=== PATIENT | male | born 1980 | race Caucasian/White ===

== ENCOUNTER → 2017-12-15 14:40 | Outpatient (CLI) | payer OTHER, SELFPAY ==
[2017-12-15 14:45] LABS: Bacteria 0 SEEN /hpf (None Seen); Mucous, Urine 0 SEEN /hpf (<or=2+); Red Blood Cells-Urine 0 SEEN /hpf (0-5)
[2017-12-15 17:14] LABS: Color, Urine Yellow (Yellow); Glucose, Dipstick Normal (Normal); Ketone-Dipstick Negative (Negative); Leukocyte Esterase-Dipstick 25 /ul (Negative); Nitrite-Dipstick Negative (Negative); Occult Blood-Urine Negative /ul (Negative); Protein-Dipstick Negative (Negative); Specific Gravity, Urine 1.005 (1.002-1.030); Urine Bilirubin Dipstick Negative (Negative); Urine Clarity Sl. Cloudy (Clear); Urine Urobilinogen Normal (Normal)
[2017-12-15 17:20] LABS: Anion Gap 7 (5-15); BUN 12 mg/dL (7-18); BUN/Creat Ratio 8.8 RATIO (10-20); Calcium,Total 8.7 mg/dL (8.5-10.1); Chloride 103 mmol/L (98-107); Creatinine, Serum 1.37 mg/dL (0.70-1.30); EST Glomerular Filtration Rate 62 mL/min (>60); Est Glom Filt Rate - Afr Amer 75 mL/min (>60); Glucose 103 mg/dL (74-106); Potassium 3.8 mmol/L (3.5-5.1); Sodium Level 140 mmol/L (136-145)
[2017-12-15 17:21] LABS: Absolute Lymphocyte Count 2.14 X10^3/ul (0.83-4.51); Absolute Neutrophil Count 3.5 X10^3/uL (2.0-7.7); Basophil# 0.02 X10^3/uL; Basophil% 0.3 % (0-1); Eosinophils% 3.2 % (0-5); Hematocrit 43.2 % (40-54); Hemoglobin 15.1 g/dl (13.0-16.5); Lymphocyte # 2.14 X10^3/ul (4.0); Lymphocyte % 33.9 % (19-41); Mean Corpuscular Hgb 30.6 pg (27.0-32.0); Mean Corpuscular Volume 87.4 fL (80-94); Mean Platelet Vol. 10.9 fl (6.2-12.0); Monocyte# 0.43 X10^3/uL; Monocyte% 6.8 % (0-10); Neutrophil # 3.51 X10^3/uL (2.7-7.7); Neutrophil % 55.6 % (47-70); Platelet Count 269 K/mm3 (150-450); RBC Distribution Width CV 13.3 % (11.6-14.6); RBC Distribution Width SD 42.4 fl (35.1-43.9); Red Blood Count 4.94 M/mm3 (4.6-6.2); White Blood Count 6.3 K/mm3 (4.4-11.0)
[2017-12-15 17:22] LABS: Squamous Epithelial Cells - UA 0-5 SEEN /hpf (0-5); White Blood Cells 0-5 SEEN /hpf (0-5)
[2017-12-15 17:28] LABS: POSITIVE COUNT NO; POSITIVE DIFFERENTIAL NO; POSITIVE MORPHOLOGY NO
== END ==
PROVIDERS: Family Provider Family Medicine; PCP Family Medicine; Visit Provider Family Medicine
DX: Z52.4 Kidney donor (principal)
CPT/HCPCS: 36415; 80048; 81001; 85025

== ENCOUNTER 2019-03-08 09:21 | Emergency (ER) | payer MEDICAID, SELFPAY ==
[2019-03-08 09:22] VITALS: BP 158/91; PULSE 74; RESP 18; TEMP 36.7; O2SAT 99; BMI 30.9
--- NOTE | 2019-03-08 09:33 | EKG12_ITS ---
Test Reason : CP Blood Pressure : / mmHG Vent. Rate : 073 BPM Atrial Rate : 073 BPM P-R Int : 150 ms QRS Dur : 112 ms QT Int : 390 ms P-R-T Axes : 044 -87 050 degrees QTc Int : 429 ms Normal sinus rhythm Left anterior fascicular block Abnormal ECG Confirmed by ALONZO MCCARTHY ([id number]), editorial assistant WESLEY SAM ([id number] on 03/14/2019 3:40:22 PM Referred By: LAURA Confirmed By:ALONZO MCCARTHY
--- NOTE | 2019-03-08 09:35 | RAD_ITS ---
STUDY: X-RAY CHEST REASON FOR EXAM: Male, 38 years old. Chest pain TECHNIQUE: Single AP portable view of the chest. COMPARISON: None. FINDINGS: The lungs are clear and expanded. There is no demonstrated pleural abnormality. Normal size heart. Normal mediastinum and inocencia. Normal visualized pulmonary arteries. Normal visualized aortic arch and descending thoracic aorta. Normal visualized thoracic spine. Normal visualized ribs, clavicles, and shoulders. There is no demonstrated abnormality of the visualized soft tissue structures of the upper abdomen. RAD/Chest 1 View (Portable) IMPRESSION: Normal x-ray examination of the chest. Electronically Signed: Abdirizak Bowling DO at 9:56 EDT Tel , Service support ,
--- NOTE | 2019-03-08 09:35 | ED.VISSUMM ---
- ER Visit Summary Date of Service: 03/08/19 Chief Complaint: Chest pain, shortness of breath, and dizziness History of Present Illness: The patient is a 38 M who presents with chest pain, shortness of breath, and dizziness that began today. Patient states the dizziness began rather suddenly with the chest pain shortness of breath has gradually gotten worse since this morning. Patient states the dizziness feels like his head is spinning. Patient also admits to some decreased hearing. Patient states his chest pain is a dull ache over the left parasternal chest area. Patient admits to some shortness of breath and diaphoresis. Patient also admits to some palpitations. Patient also admits to a cough. Patient denies any nausea or vomiting. Patient denies any fevers or chills. Patient is a smoker. Patient has no other cardiac or PE risk factors. Physical Examination: Vital signs are stable. Patient is afebrile. Patient is in no acute distress. Oral mucosa is pink and moist. Neck is supple. Trachea is midline. There is no JVD noted. Heart was regular rate and rhythm. Lungs are clear and equal bilateral. Abdomen is soft. Bowel sounds are normal. There is no tenderness. There is no guarding noted. Skin is warm dry. Cranial nerves II through XII are intact. There are no focal motor or sensory deficits noted. The remaining physical exam is within normal limits. Test Results: EKG showed normal sinus rhythm with a rate of 73. There is a left anterior fascicular block. There is no other acute ST or T wave changes noted. CBC was normal. Basic metabolic profile shows slightly elevated creatinine 1.39. Troponin was normal at less than 0.015. Chest x-ray was obtained. There is no acute cardiopulmonary process. Emergency Department Course and Treatment: Patient was given aspirin here. Patient was given a dose of meclizine here. Patient felt better on reevaluation. Patient states his dizziness and chest pain has resolved. Patient has a HEART score of 3 and a PAMELA risk score of 1. Patient was advised that this is low risk for acute cardiac event. Patient was instructed to follow-up with his primary care physician in 5 to 7 days. Patient understood and was agreeable with the plan. All questions were answered. Disposition: Discharge home Impression: 1. Chest pain 2. Dizziness This note was generated with [employer] software. It may contain incorrect words, spelling, and punctuation that were not noted in review of the chart prior to signing ED Disposition - Plan for ED Patient: Disposition: Home or Assisted Living Diagnosis: Chest pain, Dizziness Instructions: ED Chest Pain [facility] Referrals: Ty Bowles MD [Primary Care Provider] - 5-7 Days
[2019-03-08 09:38] VITALS: O2SAT 98
[2019-03-08] MEDS: Aspirin 81 MG TAB.CHEW 324 MG PO (09:41)
[2019-03-08] MEDS: Meclizine HCl 25 MG Tablet PO (09:41)
[2019-03-08 10:26] VITALS: BP 135/86; PULSE 58; RESP 20; O2SAT 99
[2019-03-08 10:40] LABS: Absolute Lymphocyte Count 2.51 X10^3/ul (0.83-4.51); Absolute Neutrophil Count 4.3 X10^3/uL (2.0-7.7); Basophil# 0.04 X10^3/uL; Basophil% 0.5 % (0-1); Eosinophil# 0.14 X10^3/uL; Eosinophils% 1.8 % (0-5); Hematocrit 44.3 % (40-54); Lymphocyte # 2.51 X10^3/ul (4.0); Lymphocyte % 31.7 % (19-41); Mean Corpuscular Volume 86.9 fL (80-94); Mean Platelet Vol. 11.1 fl (6.2-12.0); Monocyte% 11.4 % (0-10); Neutrophil # 4.32 X10^3/uL (2.7-7.7); Neutrophil % 54.5 % (47-70); Platelet Count 280 K/mm3 (150-450); RBC Distribution Width CV 13.1 % (11.6-14.6); RBC Distribution Width SD 42.3 fl (35.1-43.9); White Blood Count 7.9 K/mm3 (4.4-11.0)
[2019-03-08 10:41] LABS: Hemoglobin 15.6 g/dl (13.0-16.5); Mean Corp Hgb Conc 35.2 g/gl (32-36); Mean Corpuscular Hgb 30.6 pg (27.0-32.0)
[2019-03-08 10:42] LABS: POSITIVE COUNT NO; POSITIVE DIFFERENTIAL NO; POSITIVE MORPHOLOGY NO
[2019-03-08 10:49] LABS: Anion Gap 4 (5-15); BUN 14 mg/dL (7-18); BUN/Creat Ratio 10.1 RATIO (10-20); Chloride 105 mmol/L (98-107); Creatinine, Serum 1.39 mg/dL (0.70-1.30); EST Glomerular Filtration Rate 61 mL/min (>60); Est Glom Filt Rate - Afr Amer 73 mL/min (>60); Estimated Creatinine Clearance 83.78 ml/min; Glucose 78 mg/dL (74-106); Potassium 4.1 mmol/L (3.5-5.1); Sodium Level 138 mmol/L (136-145)
[2019-03-08 11:08] VITALS: BP 140/86; PULSE 50; RESP 20
[2019-03-08 12:10] VITALS: BP 140/92; PULSE 51; RESP 14; O2SAT 99
[2019-03-08 12:17] VITALS: BP 128/84; PULSE 58; RESP 18; O2SAT 98
== END 2019-03-08 12:18 | disposition home or self-care (01) ==
PROVIDERS: Emergency Provider Emergency Medicine; Family Provider Family Medicine; PCP Family Medicine
DX: R07.9 Chest pain, unspecified (principal); R42 Dizziness and giddiness; R51 Headache; M54.2 Cervicalgia; R06.00 Dyspnea, unspecified; J34.89 Other specified disorders of nose and nasal sinuses; I44.4 Left anterior fascicular block; R05 Cough; F17.210 Nicotine dependence, cigarettes, uncomplicated
CPT/HCPCS: 71045; 80048; 84484; 85025; 93005; 99285; A4216

== ENCOUNTER 2019-04-16 18:03 | Emergency (ER) | payer MEDICAID, SELFPAY ==
[2019-04-16 18:05] VITALS: BP 166/92; PULSE 118; RESP 16; TEMP 36.1; O2SAT 99; BMI 29.9
--- NOTE | 2019-04-16 18:35 | RAD_ITS ---
HISTORY: Right hand pain XR Hand Min 3 Views TECHNIQUE: 3 views # of images incl. paperwork: 3 COMPARISON: None. FINDINGS: On the lateral view, question of an age indeterminate volar plate avulsion fracture of the base of middle phalanx. Remaining osseous structures are otherwise intact without acute fracture or dislocation. Joint spaces are well-preserved. Soft tissues appear unremarkable. No radiopaque foreign body. RAD/Hand Min 3 Views IMPRESSION: 1. Age indeterminate volar plate avulsion fracture base of middle phalanx of third finger versus soft tissue calcification. Correlation with point of tenderness to determine acuity is recommended. 2. Otherwise, remainder of this exam is unremarkable. at 1915 Reported and signed by: Dino St MD Electronically Signed: Dino St MD at 19:14 EDT Tel , Service support ,
--- NOTE | 2019-04-16 18:45 | ED.VISSUMM ---
- ER Visit Summary Date of Service: 04/16/19 Chief Complaint: Right hand injury around the ring and small metacarpals. History of Present Illness: The patient is a 38 M [id number]. No significant past medical history other than the previously donated one kidney. Patient states he was hammering a nail when he hit a board with his right hand. No other injuries. He is right-hand dominant. No prior history or surgery to that hand. Physical Examination: Vital signs stable afebrile. Young male no acute distress vital signs stable afebrile. HEENT exam unremarkable. Neck nontender. Lungs clear to auscultation. Heart regular rhythm no murmur. Chest wall nontender. Abdomen soft nontender. Remedies moving all 4. Neurovascular intact. His right hand on the dorsum of the knee contusion to the proximal phalanx of his right ring finger. The superficial laceration over the MTP joint knuckle of the right small finger. There is no gross bony deformity. He has full flexion-extension all digits of the right hand. Neurovascular intact with normal cap refill. He is able to make a fist. He is able to completely extend the hand. There is no signs of any tendon injury. No signs of infection. The superficial laceration did not need to be repaired. Test Results: Right hand x-ray 3 views shows no acute fracture or dislocation. Emergency Department Course and Treatment: Discharge to home. Treatment Plan: Ice and elevate the right hand. Keep the wound clean. Motrin for pain and Tylenol. Follow-up if not improving. Disposition: Discharge Impression: Right hand contusion and superficial laceration. This note was generated with [employer] dictation software. It may contain incorrect words, spelling, and punctuation that were not noted in review of the chart prior to signing ED Disposition - Plan for ED Patient: Referrals: Ty Bowles MD [Primary Care Provider] -
--- NOTE | 2019-04-16 18:47 | ED.DEP ---
ED Disposition - Plan for ED Patient: Disposition: Home or Assisted Living Instructions: CONTUSION, Upper Extremity Referrals: Ty Bowles MD [Primary Care Provider] - 1 Week if not improving Additional Instructions: Ice and elevate the right hand. Keep the wound clean. X-ray shows no signs of anything broken. Tylenol and/or Motrin for pain. Follow-up if not improving.
[2019-04-16 18:58] VITALS: BP 145/78; PULSE 82; RESP 16; O2SAT 98
== END 2019-04-16 19:01 | disposition home or self-care (01) ==
LOC: ED 18:51
PROVIDERS: Emergency Provider Emergency Medicine; Family Provider Family Medicine; PCP Family Medicine
DX: S60.221A Contusion of right hand, initial encounter (principal); S61.411A Laceration without foreign body of right hand, initial encounter; W22.8XXA Striking against or struck by other objects, initial encounter; Y93.9 Activity, unspecified; Y92.89 Other specified places as the place of occurrence of the external cause; Y99.8 Other external cause status; Z72.0 Tobacco use
CPT/HCPCS: 73130; 99282

== ENCOUNTER 2019-05-03 13:47 | Emergency (ER) | payer MEDICAID, SELFPAY ==
[2019-05-03 13:48] VITALS: BP 124/72; PULSE 91; RESP 16; TEMP 36.2; O2SAT 98; BMI 29.5
--- NOTE | 2019-05-03 13:55 | RAD_ITS ---
STUDY: X-RAY - LEFT HAND, ATTENTION INDEX FINGER REASON FOR EXAM: Male, 38 years old. Pain following injury. TECHNIQUE: view(s) of the finger were obtained. COMPARISON: None. FINDINGS: Normal metacarpal head. Normal metacarpophalangeal joint. Normal proximal phalanx. Normal middle phalanx. Normal distal phalanx. Normal proximal interphalangeal joint. Normal distal interphalangeal joint. Soft tissue swelling. RAD/Finger(s) Min 2 Views IMPRESSION: Soft tissue swelling. Electronically Signed: Toi Fraser, at 14:33 EDT , Service support ,
--- NOTE | 2019-05-03 14:28 | ED.DCSUM_ITS ---
- ER Visit Summary Date of Service: 05/03/19 Chief Complaint: [Injury to left index finger] History of Present Illness: The patient is a 38 M ['s notes to the emergency department with an injury to his left index finger that occurred about an hour and a half ago. Patient accidentally struck his left index finger with a hammer. Patient is right-hand dominant. Patient unsure of his last tetanus.] Physical Examination: [Left index finger-patient has a 5 mm laceration over the lateral aspect of the distal phalanx lateral to the nail. Small amount of bleeding noted from the lateral edge of the nail. He has a small subungual hematoma measuring about 8% of the area of the nail. Normal range of motion at the DIP and PIP joint. Neurovascular intact.] Test Results: [X-rays of the left index finger obtained showed a nondisplaced fracture of the distal tuft of the finger.] Emergency Department Course and Treatment: [Patient had the wound cleansed and dressing applied. Patient was placed in an aluminum splint. Nothing amenable for laceration repair as the skin just split slightly from the pressure but there is really nothing to suture at this time.] Treatment Plan: [Follow-up with primary care physician in 5 to 7 days. Patient given a prescription for Revere for pain. Patient will be treated with Keflex for 7 days.] Disposition: [Discharged home stable condition] Impression: [Left index finger still phalanx fracture] This note was generated with [employer] dictation software. It may contain incorrect words, spelling, and punctuation that were not noted in review of the chart prior to signing ED Disposition - Plan for ED Patient: Referrals: Ty Bowles MD [Primary Care Provider] -
--- NOTE | 2019-05-03 14:31 | ED.DEP ---
ED Disposition - Plan for ED Patient: Instructions: FRACTURE, Finger (Open) Prescriptions: Cephalexin [Keflex] 500 mg PO Q6 #28 cap Prescription Printed Referrals: Ty Bowles MD [Primary Care Provider] - 5-7 Days
[2019-05-03] MEDS: Cephalexin 250 MG Capsule 500 MG PO (14:43)
[2019-05-03] MEDS: Diphth,Pertuss(Acell),Tet Vac 0.5 ML Vial IM (14:43)
[2019-05-03 15:13] VITALS: BP 138/97; PULSE 71; RESP 16; O2SAT 100
== END 2019-05-03 15:15 | disposition home or self-care (01) ==
PROVIDERS: Emergency Provider Emergency Medicine; Family Provider Family Medicine; PCP Family Medicine
DX: S62.601A Fracture of unspecified phalanx of left index finger, initial encounter for closed fracture (principal); W22.8XXA Striking against or struck by other objects, initial encounter; Y93.9 Activity, unspecified; Y92.89 Other specified places as the place of occurrence of the external cause; Y99.9 Unspecified external cause status; Z72.0 Tobacco use
CPT/HCPCS: 73140; 90471; 90715; 99283

== ENCOUNTER 2019-11-28 15:20 | Emergency (ER) | payer MEDICAID, SELFPAY ==
[2019-11-28 15:21] VITALS: BP 157/97; PULSE 91; RESP 18; TEMP 36.6; O2SAT 99; BMI 30.8
[2019-11-28] MEDS: DiphenhydrAMINE 50 MG/ML Syringe IV (15:38)
[2019-11-28] MEDS: MethylPREDNISolone 125 MG/2 ML Vial IV (15:39)
[2019-11-28] MEDS: 0.9% Normal Saline 1,000 ML 999 ML IV (15:39)
[2019-11-28] MEDS: Famotidine 200 MG/20 ML MDV 20 MG in 0.9% Normal Saline (Pres. free 8 ML 300 MG IV (15:45)
[2019-11-28 16:20] VITALS: BP 140/77; PULSE 83; RESP 17; O2SAT 97
--- NOTE | 2019-11-28 17:06 | ED.VISSUMM ---
- ER Visit Summary Date of Service: 11/28/19 Chief Complaint: Allergic reaction History of Present Illness: The patient is a 39 M who sees Andrea Do. Reports approximate 25 minutes ago he ate MSG. Approximately 10 minutes ago he began feeling like he was having difficulty breathing. Denies any rash or other complaints. Reports has had similar symptoms previously nares required epinephrine. He does not have an EpiPen with him. Physical Examination: Vitals: Stable. Afebrile. General: Well-nourished and well-developed. Head: Normocephalic atraumatic. HEENT: No angioedema of the lips, tongue, oropharynx. Neck: Supple, no lymphadenopathy. No JVD. Nontender. Cardiovascular: Regular rate and rhythm. No murmurs. Respiratory: No respiratory distress. Clear to auscultation bilaterally. No stridor or wheezing. Abdominal: Soft, nontender, nondistended, normal bowel sounds. No guarding, rebound, or peritoneal signs. Back: Nontender. Extremities: Nontender, no edema. Skin: Normal color, no rash. Neurologic: Alert and oriented ?3. Cranial nerves II through XII are intact. Normal strength and sensation. Psych: Normal affect. Emergency Department Course and Treatment: Patient was given epinephrine IM. He was given Benadryl, Solu-Medrol, Pepcid IV. His symptoms have resolved. Treatment Plan: Patient be discharged with an EpiPen. Is also given prescriptions for prednisone, Zyrtec, Pepcid. Instructed to follow-up with his primary care physician 1 to 2 days if not improving. Return to the emergency department for any worsening symptoms. Disposition: To home in improved and stable condition. Impression: 1. Allergic reaction to MSG. This note was generated with [employer] dictation software. It may contain incorrect words, spelling, and punctuation that were not noted in review of the chart prior to signing ED Disposition - Plan for ED Patient: Disposition: Home or Assisted Living Instructions: ALLERGIC REACTION, Other (General) Prescriptions: Prednisone [Deltasone] 60 mg PO DAILY #15 tab Prescription Printed Epi Pen (for allergic rxn) 0.3 mg IM X1 #2 syringe Prescription Printed Famotidine [Pepcid] 20 mg PO BID #28 tab Prescription Printed Cetirizine HCl [Zyrtec] 10 mg PO DAILY #14 cap Prescription Printed Referrals: Lis Do PA [Primary Care Provider] - 1-2 Days if not improving
[2019-11-28 17:40] VITALS: BP 126/73; PULSE 91; RESP 18; O2SAT 97
== END 2019-11-28 17:41 | disposition home or self-care (01) ==
LOC: ED 15:44
PROVIDERS: Emergency Provider Emergency Medicine; PCP Physician Assistant
DX: T78.40XA Allergy, unspecified, initial encounter (principal); F17.210 Nicotine dependence, cigarettes, uncomplicated
CPT/HCPCS: 96365; 96375; 99283; J7030; A4216; J3490

== ENCOUNTER 2022-11-30 07:27 | Emergency (ER) | payer MEDICAID, SELFPAY ==
[2022-11-30 07:27] VITALS: BP 153/90; PULSE 101; RESP 18; TEMP 36.2; O2SAT 100; BMI 30.8
--- NOTE | 2022-11-30 07:37 | CT_ITS ---
STUDY: CT ABDOMEN AND PELVIS WITH CONTRAST REASON FOR EXAM: Male, 42 years old. HX: RT NEPHRECTOMY D/T DONATION RADIATION DOSAGE (If Supplied By Facility): CTDIvol = ( 16.25 ) mGy, DLP = ( 1277.83 ) mGycm TECHNIQUE: Transaxial images were obtained from the dome of the diaphragm to the symphysis pubis with oral contrast. ml of 100mL Isovue-370 contrast was administered. Sagittal and coronal images were reconstructed. Individualized dose optimization techniques were used for this CT. COMPARISON: None. FINDINGS: The visualized lung bases are unremarkable. The visualized portions of the heart are within normal limits. There is diffuse mesenteric edema and retroperitoneal and central abdominal subcentimeter lymphadenopathy, consistent with chronic mesenteric inflammation. There is moderate edema in the wall of the middle one third ileum in the right lower quadrant with subtle surrounding inflammatory stranding. The remaining small bowel loops are normal. Small cysts are present in the liver which is otherwise normal. Normal gallbladder and extrahepatic biliary system. Normal spleen. Normal pancreas. Normal bilateral adrenal glands. Prior right nephrectomy. No masses or abnormal soft tissue density is seen in the surgical bed. Retrocaval surgical clips are present. Normal left kidney. Normal visualized stomach. Normal small intestine. Normal colon. The appendix is visualized and appears normal. Normal abdominal aorta. Normal inferior vena cava. Normal retroperitoneum. Normal urinary bladder. Normal abdominal wall. Normal osseous structures. CT/Abdomen/Pelvis WITH Contrast IMPRESSION: Nonspecified ileitis, most likely inflammatory in nature. 1. There is diffuse mesenteric edema and retroperitoneal and central abdominal subcentimeter lymphadenopathy, consistent with chronic mesenteric inflammation. There is moderate edema in the wall of the middle one third ileum in the right lower quadrant with subtle surrounding inflammatory stranding. The remaining small bowel loops are normal. Electronically Signed: Zackery Horan MD at 9:54 EST ,
--- NOTE | 2022-11-30 07:38 | EDS_ITS ---
HPI HPI - GI History of Present Illness Chief Complaint: Abd Pain Informant: patient Abdominal Pain/Flank Pain Onset: Days Context: Gradual Onset Timing: Waxes and wanes Quality: Cramping and Sharp Location: RLQ Current Severity: Moderate Maximum Severity: Moderate Narrative Narrative: Patient presents secondary to abdominal pain. For the past couple days he had some intermittent pain in his abdomen at night. Yesterday pain persisted throug hout the day. This morning patient has had nausea with diarrhea. He points to the right lower quadrant and describing his area of pain. PFSH PFSH Medical History no medical history no medical history Home Medications cefdinir 300 mg capsule 300 mg PO BID #20 caps 11/30/22 [Rx Last Taken Unknown] ondansetron 4 mg disintegrating tablet 8 mg PO Q8H PRN PRN Nausea #20 tabs 11/30/22 [Rx Last Taken Unknown] Allergy/AdvReac Type Severity Reaction Status Date / Time amoxicillin Allergy Hives Verified 11/30/22 07:27 metronidazole [From Flagyl] Allergy Hives Verified 11/30/22 07:27 monosodium glutamate [msg] Allergy Chest Verified 11/30/22 07:27 tightness Family History no significant family his Surgical History (Updated 11/30/22 @ 07:[address] Jeimy Prasad MD) History of nephrectomy, right Surgical History no surgical history Social History Smoking Status: Current every day smoker tobacco type: cigarettes ROS ROS ED Constitutional Constitutional ED: Denies chills or fever(s) Eyes Eyes: Denies change in vision or discharge from eye(s) ENT ENT ED: Denies discharge from eye(s), rhinorrhea or sore throat Cardiovascular Cardiovascular: Denies chest pain or palpitations Respiratory/Chest Respiratory/Chest: Denies cough or dyspnea Gastrointestinal Gastrointestinal: Reports abdominal pain, diarrhea and nausea; Denies vomiting Genitourinary Genitourinary ED: Denies difficulty urinating or dysuria Musculoskeletal Musculoskeletal: Denies back pain or extremity pain Integumentary Denies Abrasions or rash Neurologic Neurologic: Denies headache(s) or weakness Psychiatric Psychiatric: Denies anxiety or depression Allergic/Immunologic Allergic/Immunologic ED: Denies lip swelling or urticaria EXAM Physical Exam Const Vital Signs: 11/30/22 07:27 Temperature 97.2 F L Temperature Source Temporal Pulse Rate 101 H Respiratory Rate 18 Blood Pressure 153/90 H Blood Pressure Mean 111 Pulse Ox 100 Positive well nourished and well developed General Appearance ED: well developed HEENT Reports normocephalic and head/scalp atraumatic Eyes PERRL and EOMs intact bilaterally Neck supple Chest Wall inspection of chest normal and palpation of chest normal Resp normal respiratory effort and clear to auscultation bilaterally Cardio regular rate and regular rhythm GI GI Narrative: Right lower quadrant tenderness to palpation. No guarding at this time. Hypoactive bowel sounds present. Palpation: soft Extremity normal to inspection Neuro oriented x3 and no sensory deficits noted Sensorium / Orientation: alert Motor Exam: strength 5/5 throughout Psych mental status grossly normal Skin no rashes or lesions noted MDM MDM MDM Narrative Medical decision making narrative: Patient was given morphine and Zofran for pain along with IV fluids. Lab work obtained to evaluate for leukocytosis and electrolyte abnormality. CT scan of the abdomen and pelvis obtained to evaluate for appendicitis. Lab Data Attestation: I reviewed the patient's lab results. Labs: Laboratory Results - last 24 hr 11/30/22 11/30/22 07:40 07:40 WBC 10.7 RBC 5.06 Hgb 15.8 Hct 44.6 MCV 88.1 MCH 31.2 MCHC 35.4 RDW Std Deviation 42.8 RDW Coeff of Yoon 13.2 Plt Count 310 MPV 10.0 Immature Gran % (Auto) 0.200 Neut % (Auto) 69.8 Lymph % (Auto) 16.9 L [place] % (Auto) 10.5 H Eos % (Auto) 2.2 Baso % (Auto) 0.4 Absolute Neuts (auto) 7.5 Absolute Lymphs (auto) 1.80 Nucleated RBC % 0 Sodium 140 Potassium 4.6 Chloride 107 Carbon Dioxide 27.0 Anion Gap 6 BUN 15 Creatinine 1.32 H Estim Creat Clear Calc 84.76 Est GFR (MDRD) Af Amer 76 Est GFR (MDRD) Non-Af 63 BUN/Creatinine Ratio 11.4 Glucose 93 Calcium 8.8 Total Bilirubin 0.50 Direct Bilirubin 0.13 AST 23 ALT 30 Alkaline Phosphatase 70 Total Protein 7.5 Albumin 4.1 Globulin 3.4 Radiography Diagnostic Testing: Clinical Impression(s) from Imaging Studies Abdomen/Pelvis CT 11/30/22 07:37 IMPRESSION: Nonspecified ileitis, most likely inflammatory in nature. 1. There is diffuse mesenteric edema and retroperitoneal and central abdominal subcentimeter lymphadenopathy, consistent with chronic mesenteric inflammation. There is moderate edema in the wall of the middle one third ileum in the right lower quadrant with subtle surrounding inflammatory stranding. The remaining small bowel loops are normal. Electronically Signed: Zackery Horan MD at 9:54 EST , Treatment and Re-Evaluation Narrative: CBC and chemistry studies are largely unremarkable. Creatinine is 1.32, at his baseline. CT scan of the abdomen pelvis reveals evidence of ileitis with mesenteric edema and lymphadenopathy. Appendix is well visualized and normal. Test results were discussed with the patient. He has prescription strength ibuprofen he will use at home for pain. I will write him Zofran as well as cefdinir as he does have an amoxicillin and Flagyl allergy. I did recommend to him follow-up with GI for further evaluation as well. Return instructions given. Discharge Plan Triage Chief Complaint: Abd Pain ED Provider: Jeimy Prasad Dx/Rx/DC Orders Clinical Impression: Ileitis Instructions: ED Understanding Colitis Prescriptions: New cefdinir 300 mg capsule 300 mg PO BID Qty: 20 0RF ondansetron 4 mg tablet,disintegrating 8 mg PO Q8H PRN PRN (Reason: Nausea) Qty: 20 0RF Primary Care Provider: Lis Do Referrals: Francis Noriega DO [Med Staff - Active Staff] - As Needed Lis Do PA [Primary Care Provider] - 1 Week Disposition Disposition: Home, Self Care
[2022-11-30] MEDS: Ondansetron 4 MG/2 ML Vial IV (07:45)
[2022-11-30] MEDS: Morphine 4 MG/ML Syringe IV (07:46)
[2022-11-30 07:48] LABS: Absolute Neutrophil Count 7.5 X10^3/uL (2.0-7.7); Basophil# 0.04 X10^3/uL; Basophil% 0.4 % (0-1); Eosinophil# 0.24 X10^3/uL; Eosinophils% 2.2 % (0-5); Hematocrit 44.6 % (40-54); Hemoglobin 15.8 g/dL (13.0-16.5); Lymphocyte % 16.9 % (19-41); Mean Corp Hgb Conc 35.4 g/dL (32-36); Mean Corpuscular Hgb 31.2 pg (27.0-32.0); Mean Corpuscular Volume 88.1 fL (80-94); Monocyte# 1.12 X10^3/uL; Monocyte% 10.5 % (0-10); NRBC Flagged by Analyzer 0 % (0-5); Neutrophil # 7.46 X10^3/uL (2.7-7.7); Neutrophil % 69.8 % (47-70); Platelet Count 310 K/mm3 (150-450); RBC Distribution Width CV 13.2 % (11.6-14.6); RBC Distribution Width SD 42.8 fl (35.1-43.9); Red Blood Count 5.06 M/mm3 (4.6-6.2); White Blood Count 10.7 K/mm3 (4.4-11.0)
[2022-11-30] MEDS: 0.9% Normal Saline 1,000 ML 150 ML IV (07:48)
[2022-11-30 08:04] LABS: AST(SGOT) 23 U/L (15-37); Alanine Aminotransfer ALT/SGPT 30 U/L (16-61); Albumin, Serum 4.1 g/dL (3.2-5.0); Alkaline Phosphatase 70 U/L (45-117); Anion Gap 6 (5-15); BUN 15 mg/dL (7-18); BUN/Creat Ratio 11.4 RATIO (10-20); Bilirubin, Direct 0.13 mg/dL (0.00-0.30); Calcium,Total 8.8 mg/dL (8.5-10.1); Chloride 107 mmol/L (98-107); Creatinine, Serum 1.32 mg/dL (0.70-1.30); EST Glomerular Filtration Rate 63 mL/min (>60); Est Glom Filt Rate - Afr Amer 76 mL/min (>60); Estimated Creatinine Clearance 84.76 ml/min; Globulin 3.4 g/dL (2.2-4.2); Glucose 93 mg/dL (74-106); Potassium 4.6 mmol/L (3.5-5.1); Protein, Total 7.5 g/dL (6.4-8.2); Sodium Level 140 mmol/L (136-145)
[2022-11-30 10:46] VITALS: BP 158/62; PULSE 74; RESP 16; O2SAT 99
== END 2022-11-30 10:47 | disposition home or self-care (01) ==
PROVIDERS: Emergency Provider Emergency Medicine; PCP Physician Assistant; Visit Provider Emergency Medicine
DX: K52.9 Noninfective gastroenteritis and colitis, unspecified (principal); F17.210 Nicotine dependence, cigarettes, uncomplicated
CPT/HCPCS: 74177; 80048; 80076; 85025; 99283; J7030; Q9967; A4216; J2405

== ENCOUNTER 2023-12-18 17:57 | Emergency (ER) | payer MEDICAID, SELFPAY ==
[2023-12-18] VITALS (9 sets, daily range): BP systolic 130–151; BP diastolic 80–101; PULSE 69–86; RESP 16–21; TEMP 36.7–36.8; O2SAT 94–99; BMI 32.7
--- NOTE | 2023-12-18 18:28 | EKG12_ITS ---
Test Reason : Blood Pressure : / mmHG Vent. Rate : 079 BPM Atrial Rate : 079 BPM P-R Int : 162 ms QRS Dur : 106 ms QT Int : 374 ms P-R-T Axes : 027 -85 032 degrees QTc Int : 428 ms Normal sinus rhythm Left axis deviation Pulmonary disease pattern Incomplete right bundle branch block Abnormal ECG Confirmed by JOSE JEFFREY, BINU ([id number]), field map editor ROSALIND TREVINO ([id number]) on 12/21/2023 9:45:09 AM Referred By: GAIL Confirmed By:BINU GARCIA MD
--- NOTE | 2023-12-18 18:33 | EDS_ITS ---
HPI <Miriam Morales RN - Last Filed: 12/18/23 22:11> History of Present Illness Chief Complaint: Chest Pain Informant: patient Onset/Context/Timing Onset: Today Activity at onset: sudden Timing: Continuous Quality: Positive for Pressure Location: Left Chest Current Severity: 2/10 Maximum Severity: 2/10 Worsened By: Nothing Relieved By: Nothing Associated Symptoms: Positive for Nausea, Diaphoresis, Dyspnea and - (Weakness, generalized shaking) Narrative Narrative: Patient presents to the ED via EMS with complaints of left-sided chest pressure that began just prior to having intercourse. Symptoms began approximately 30 minutes prior to arrival. EMS administered aspirin and nitroglycerin with complete resolution of symptoms. However, symptoms have returned. Patient reports that he was diaphoretic, weak, dizzy, had generalized shakiness, shortness of breath, and nausea with the chest pain. Patient reports it as a chest pressure rating 2/10. Patient denies any use of erectile dysfunction medications. Patient denies any past medical history. He reports he used to smoke 1 pack/day for for 30 years. He currently uses a nicotine vape multiple times a day. He denies alcohol or illicit drug use. Prior Similar Symptoms: No Recent Illness/Hospitalization: No CVD Risk Factors: Negative for Hypertension, Diabetes, Hypercholesterolemia or Family History 1' </=55 PE Risk Factors: Negative for Recent Travel/Surgery, Recent Immobilization, Prior DVT or PE or OCP + Smoking + >/=35 PFSH <Miriam Morales RN - Last Filed: 12/18/23 22:11> PFSH Medical History no medical history Home Medications NK 12/18/23 [History Last Taken Unknown] Allergy/AdvReac Type Severity Reaction Status Date / Time amoxicillin Allergy Hives Verified 12/18/23 18:05 metronidazole [From Flagyl] Allergy Hives Verified 12/18/23 18:05 monosodium glutamate [msg] Allergy Chest Verified 12/18/23 18:05 tightness Surgical History History of nephrectomy, right Social History Smoking Status: Current every day smoker tobacco type: e-cigarettes ROS <Miriam Morales RN - Last Filed: 12/18/23 22:11> ROS ED Constitutional Constitutional ED: Denies chills, fever(s) or sweats Eyes Eyes: Denies change in vision Cardiovascular Cardiovascular: Reports as per HPI and chest pain Respiratory/Chest Respiratory/Chest: Reports dyspnea and dyspnea on exertion; Denies cough Gastrointestinal Gastrointestinal: Reports nausea; Denies abdominal pain, diarrhea or vomiting Genitourinary Genitourinary ED: Denies dysuria, hematuria or urinary frequency Musculoskeletal Musculoskeletal: Denies arthralgias or myalgias Neurologic Neurologic: Reports other Details: Headache after administration of nitrogly cerin which resolved prior to arrival to hospital. Psychiatric Psychiatric: Denies anxiety or depression Hematologic/Lymphatic Hematologic/Lymphatic: Denies easy bleeding or easy bruising EXAM <Miriam Morales RN - Last Filed: 12/18/23 22:11> Physical Exam Const Vital Signs: 12/18/23 17:58 12/18/23 17:58 12/18/23 18:31 Temperature 98.2 F Temperature Source Oral Pulse Rate 80 Respiratory Rate 21 H Respiratory Effort Short of Breath Blood Pressure 151/91 H Blood Pressure Mean 111 Pulse Ox 96 99 Oxygen Delivery Method Room Air Room Air 12/18/23 18:46 12/18/23 18:58 12/18/23 19:10 Temperature Temperature Source Pulse Rate 74 76 74 Respiratory Rate 16 16 Respiratory Effort Blood Pressure 136/87 H 151/94 H 151/94 H Blood Pressure Mean 113 113 Pulse Ox 94 96 Oxygen Delivery Method Room Air Room Air 12/18/23 20:00 12/18/23 21:00 12/18/23 22:00 Temperature Temperature Source Pulse Rate 77 86 69 Respiratory Rate 16 16 18 Respiratory Effort Blood Pressure 130/94 H 145/80 H 132/101 H Blood Pressure Mean 106 101 111 Pulse Ox 97 95 97 Oxygen Delivery Method Room Air Room Air Room Air 12/18/23 22:18 Temperature 98.1 F Temperature Source Pulse Rate 81 Respiratory Rate 17 Respiratory Effort Blood Pressure 135/84 H Blood Pressure Mean 101 Pulse Ox 98 Oxygen Delivery Method Positive well nourished and well developed General Appearance ED: well developed and NAD; Negative for pallor HEENT Reports moist mucous membranes normocephalic and atraumatic Eyes PERRL Neck no lymphadenopathy, supple and no JVD Chest Wall inspection of chest normal Chest Narrative: Tenderness to left upper chest with palpation. Chest: tenderness Resp normal respiratory effort and clear to auscultation bilaterally Auscultation: Negative for rales, rhonchi or wheezes Cardio regular rate, regular rhythm, S1 normal heart sound and S2 normal heart sound Peripheral Pulses: pulses 2+ throughout GI normal to inspection, nondistended, normoactive bowel sounds, soft to palpation and non-tender Extremity normal to inspection General Extremety ED: Negative for edema General Extremity: Negative for edema Neuro oriented x3 Sensorium / Orientation: awake and alert Motor Exam: strength 5/5 throughout Psych mental status grossly normal Skin no rashes or lesions noted General Skin Exam: Negative for jaundice or pallor <Dr. Jeimy Prasad MD - Last Filed: 12/19/23 01:14> Physical Exam Const Vital Signs: 12/18/23 17:58 12/18/23 17:58 12/18/23 18:31 Temperature 98.2 F Temperature Source Oral Pulse Rate 80 Respiratory Rate 21 H Respiratory Effort Short of Breath Blood Pressure 151/91 H Blood Pressure Mean 111 Pulse Ox 96 99 Oxygen Delivery Method Room Air Room Air 12/18/23 18:46 12/18/23 18:58 12/18/23 19:10 Temperature Temperature Source Pulse Rate 74 76 74 Respiratory Rate 16 16 Respiratory Effort Blood Pressure 136/87 H 151/94 H 151/94 H Blood Pressure Mean 113 113 Pulse Ox 94 96 Oxygen Delivery Method Room Air Room Air 12/18/23 20:00 12/18/23 21:00 12/18/23 22:00 Temperature Temperature Source Pulse Rate 77 86 69 Respiratory Rate 16 16 18 Respiratory Effort Blood Pressure 130/94 H 145/80 H 132/101 H Blood Pressure Mean 106 101 111 Pulse Ox 97 95 97 Oxygen Delivery Method Room Air Room Air Room Air 12/18/23 22:18 Temperature 98.1 F Temperature Source Pulse Rate 81 Respiratory Rate 17 Respiratory Effort Blood Pressure 135/84 H Blood Pressure Mean 101 Pulse Ox 98 Oxygen Delivery Method <Miriam Morales RN - Last Filed: 12/18/23 22:11> Heart Score History: Slightly/Non-Suspicious ECG: Normal Age: </= 45 years Risk Factors: No Risk Factors Troponin: </= Normal Limit Score: 0 <Dr. Jeimy Prasad MD - Last Filed: 12/19/23 01:14> Heart Score Score: 0 MDM <Miriam Morales RN - Last Filed: 12/18/23 22:11> MDM MDM Narrative Medical decision making narrative: Patient placed on cardiac cath technician. IV line initiated. Labwork obtained to evaluate for leukocytosis, anemia, and electrolyte derangement. Chest x-ray obtained to evaluate for acute lung pathology, cardiac size, or mediastinal abnormality. EKG obtained to evaluate for cardiac arrhythmia/ischemia. Normal saline 500 mL bolus ordered followed by 150 mL/h. Nitroglycerin topical ordered for chest pain. History & Record Review Discussion w/independent historian: Patient and Significant other Lab Data Labs: Laboratory Results - last 24 hr 12/18/23 12/18/23 17:45 19:45 WBC 7.6 RBC 5.00 Hgb 15.2 Hct 43.2 MCV 86.4 MCH 30.4 MCHC 35.2 RDW Std Deviation 40.7 RDW Coeff of Yoon 13.1 Plt Count 312 MPV 10.7 Immature Gran % (Auto) 0.100 Neut % (Auto) 45.3 L Lymph % (Auto) 41.6 H [place] % (Auto) 10.0 Eos % (Auto) 2.5 Baso % (Auto) 0.5 Absolute Neuts (auto) 3.4 Absolute Lymphs (auto) 3.15 Nucleated RBC % 0 Sodium 141 Potassium 3.5 Chloride 105 Carbon Dioxide 27.0 Anion Gap 9 BUN 13 Creatinine 1.37 H Estim Creat Clear Calc 93.97 Est GFR (MDRD) Af Amer 73 Est GFR (MDRD) Non-Af 60 BUN/Creatinine Ratio 9.5 L Glucose 94 Calcium 9.6 Troponin I High Sens 5 7 Radiography Chest X-Ray - ED: 1 View, Read by Radiologist and No Infiltrates Diagnostic Testing: Clinical Impression(s) from Imaging Studies Chest X-Ray 12/18/23 18:54 IMPRESSION: Normal x-ray examination of the chest. Electronically Signed: Nash Vicente MD at 19:25 EST , EKG Initial EKG: Attestation: I personally reviewed and interpreted this EKG as follows: Interpretation: Sinus Rhythm Comments: EKG reviewed with Dr. Prasad. Sinus rhythm with a rate of 79. No dysrhythmia or ischemia noted. Prior EKG tracings: not available for review Differential Diagnosis Chest pain/SOB: ACS, pneumonia and CHF Management Discussion w/another healthcare provider: Other (Dr. Prasad, ED provider) Treatment and Re-Evaluation :: Lab work reviewed. CBC with normal white count 7.6, hemoglobin normal at 15.2. Chemistry normal with the exception of a slightly elevated creatinine of 1.37 which has been patient's baseline. First high-sensitivity troponin negative at 5. 2-hour repeat high-sensitivity troponin is negative at 7. Chest x-ray is negative for infiltrates or cardiomegaly. EKG shows a sinus rhythm with a rate of 79. No dysrhythmia or ischemia is noted. Upon reevaluation, patient awake and alert in bed with at bedside. Denies pain at this time other than a headache. Lab work and chest work reviewed with patient. Heart score is 0. Patient is able to be discharged home. Patient to call primary care provider on Thursday to schedule an appointment for follow-up. Instructed patient to return to ED for repeat or worsening symptoms. Patient agreeable with plan. Patient to be discharged home with chest pain of uncertain etiology. <Dr. Jeimy Prasad MD - Last Filed: 12/19/23 01:14> [facility] [place] Lab Data Labs: Laboratory Results - last 24 hr 12/18/23 12/18/23 17:45 19:45 WBC 7.6 RBC 5.00 Hgb 15.2 Hct 43.2 MCV 86.4 MCH 30.4 MCHC 35.2 RDW Std Deviation 40.7 RDW Coeff of Yoon 13.1 Plt Count 312 MPV 10.7 Immature Gran % (Auto) 0.100 Neut % (Auto) 45.3 L Lymph % (Auto) 41.6 H [place] % (Auto) 10.0 Eos % (Auto) 2.5 Baso % (Auto) 0.5 Absolute Neuts (auto) 3.4 Absolute Lymphs (auto) 3.15 Nucleated RBC % 0 Sodium 141 Potassium 3.5 Chloride 105 Carbon Dioxide 27.0 Anion Gap 9 BUN 13 Creatinine 1.37 H Estim Creat Clear Calc 93.97 Est GFR (MDRD) Af Amer 73 Est GFR (MDRD) Non-Af 60 BUN/Creatinine Ratio 9.5 L Glucose 94 Calcium 9.6 Troponin I High Sens 5 7 Radiography Diagnostic Testing: Clinical Impression(s) from Imaging Studies Chest X-Ray 12/18/23 18:54 IMPRESSION: Normal x-ray examination of the chest. Electronically Signed: Nash Vicente MD at 19:25 EST Reading Location ID and State: [facility] / [place] Tel , Service support , Treatment and Re-Evaluation :: Lab work reviewed. CBC with normal white count 7.6, hemoglobin normal at 15.2. Chemistry normal with the exception of a slightly elevated creatinine of 1.37 which has been patient's baseline. First high-sensitivity troponin negative at 5. 2-hour repeat high-sensitivity troponin is negative at 7. Chest x-ray is negative for infiltrates or cardiomegaly. EKG shows a sinus rhythm with a rate of 79. No dysrhythmia or ischemia is noted. Upon reevaluation, patient awake and alert in bed with at bedside. Denies pain at this time other than a headache. Lab work and chest work reviewed with patient. Heart score is 0. Patient is able to be discharged home. Patient to call primary care provider on Thursday to schedule an appointment for follow-up. Instructed patient to return to ED for repeat or worsening symptoms. Patient agreeable with plan. Patient to be discharged home with chest pain of uncertain etiology. Patient seen and evaluated with DENNISE student. I personally interviewed and exam ined the patient. I was involved in all aspects of patient's orders, interpretation of results, and treatment. Patient presents via EMS secondary to chest pain. Patient developed lightheadedness, sweats, shortness of breath, and left upper chest pain this evening just prior to intercourse. Symptoms started approximately 30 minutes ago. He rates his maximum pain at a 2 out of 10. He states he felt dizzy as they walked him to the ambulance. Once in the squad EKG was obtained that revealed no evidence of acute ST elevation. He was given aspirin and 1 nitroglycerin. He states his pain resolved after the nitroglycerin, but did return shortly after arrival to the emergency room. He states his other symptoms including dizziness, diaphoresis, shortness of breath also resolved with nitro and did not recur. Patient sitting upright in bed no acute distress. Head and neck examination unremarkable. Heart is regular rate and rhythm. He does have some left upper chest wall reproducible tenderness. No crepitus. No overlying skin change. Lung sounds are clear bilaterally. Abdomen is soft and nontender. Lower extremity examination feels no calf tenderness or edema. EKG is sinus rhythm at 79 bpm with no evidence of acute ischemia. Patient has had no arrhythmias noted on cardiac cath technician while here. CBC was a white count of 7.6 with normal differential. Hemoglobin is 15.2. Chemistry studies are unremarkable other than a creatinine of 1.37. Initial troponin is 5 with a 2- hour repeat troponin of 7. Patient had nitro paste placed on his chest on arrival and has had no recurrent symptoms here. Patient has a heart score of 0. He is comfortable with close follow-up. He was encouraged to return for any recurrent symptoms. He voices understanding and agreement. Discharge Plan Triage Chief Complaint: Chest Pain ED Provider: Jeimy Prasad Dx/Rx/DC Orders Clinical Impression: Chest pain Instructions: ED Chest Pain, Uncertain Cause Prescriptions: No Action NK Primary Care Provider: Lis Do Referrals: Lis Do PA [Primary Care Provider] - Activity Restrictions/Additional Instructions: Your lab work and chest x-ray are normal. Call Andrea Do on Thursday to schedule an appointment for follow-up within the next week. Return to ED for repeat or worsening symptoms. Disposition Disposition: Home, Self Care Discharge Date/Time: 12/18/23 22:19
[2023-12-18] MEDS: Nitroglycerin Oint 1 INCH PACKET TD (18:46)
[2023-12-18] MEDS: 0.9% Normal Saline (500mL Bag) 500 ML 999 ML IV (18:46)
[2023-12-18] MEDS: 0.9% Normal Saline (1000mL) 1,000 ML 150 ML IV (18:47)
--- NOTE | 2023-12-18 18:54 | RAD_ITS ---
STUDY: X-RAY CHEST REASON FOR EXAM: Male, 43 years old. chest pain TECHNIQUE: AP portable COMPARISON: March 08, 2019 FINDINGS: The lungs are clear and expanded. There is no demonstrated pleural abnormality. Normal size heart. Normal mediastinum and inocencia. Normal visualized pulmonary arteries. Normal visualized aortic arch and descending thoracic aorta. Normal visualized thoracic spine. Normal visualized ribs, clavicles, and shoulders. There is no demonstrated abnormality of the visualized soft tissue structures of the upper abdomen. RAD/Chest 1 View (Portable) IMPRESSION: Normal x-ray examination of the chest. Electronically Signed: Nash Vicente MD at 19:25 [facility] ,
[2023-12-18 18:58] LABS: Absolute Lymphocyte Count 3.15 X10^3/uL (0.83-4.51); Absolute Neutrophil Count 3.4 X10^3/uL (2.0-7.7); Basophil# 0.04 X10^3/uL; Basophil% 0.5 % (0-1); Eosinophil# 0.19 X10^3/uL; Eosinophils% 2.5 % (0-5); Hematocrit 43.2 % (40-54); Hemoglobin 15.2 g/dL (13.0-16.5); Lymphocyte # 3.15 X10^3/ul (0.83-4.51); Lymphocyte % 41.6 % (19-41); Mean Corp Hgb Conc 35.2 g/dL (32-36); Mean Corpuscular Hgb 30.4 pg (27.0-32.0); Mean Corpuscular Volume 86.4 fL (80-94); Mean Platelet Vol. 10.7 fl (6.2-12.0); Monocyte# 0.76 X10^3/uL; NRBC Flagged by Analyzer 0 % (0-5); Neutrophil # 3.42 X10^3/uL (2.7-7.7); Neutrophil % 45.3 % (47-70); Platelet Count 312 K/mm3 (150-450); RBC Distribution Width CV 13.1 % (11.6-14.6); RBC Distribution Width SD 40.7 fl (35.1-43.9); White Blood Count 7.6 K/mm3 (4.4-11.0)
[2023-12-18 19:06] LABS: Anion Gap 9 (5-15); BUN 13 mg/dL (7-18); BUN/Creat Ratio 9.5 RATIO (10-20); Calcium,Total 9.6 mg/dL (8.5-10.1); Chloride 105 mmol/L (98-107); Creatinine, Serum 1.37 mg/dL (0.70-1.30); EST Glomerular Filtration Rate 60 mL/min (>60); Est Glom Filt Rate - Afr Amer 73 mL/min (>60); Estimated Creatinine Clearance 93.97 ml/min; Glucose 94 mg/dL (74-106); Potassium 3.5 mmol/L (3.5-5.1); Sodium Level 141 mmol/L (136-145); Troponin-I HS (w/2H Reflex) 5 pg/mL (3.0-78.0)
[2023-12-18 20:44] LABS: Reflex Troponin-HS? (from REC) Y
[2023-12-18 21:34] LABS: Troponin-I HS 7 pg/mL (3.0-78.0)
== END 2023-12-18 22:19 | disposition home or self-care (01) ==
PROVIDERS: Emergency Provider Emergency Medicine; PCP Physician Assistant; Visit Provider Emergency Medicine
DX: R07.9 Chest pain, unspecified (principal); F17.290 Nicotine dependence, other tobacco product, uncomplicated
CPT/HCPCS: 71045; 80048; 84484; 85025; 93005; 96360; 96361; 99284; J7030; A4216